=== PATIENT | female | born 1970 | race African-American/Black ===

== ENCOUNTER 2016-08-30 09:36 | Emergency (ER) | payer BC ==
[~2016-08-30 09:36] MED LIST: AMITIZA8 MCG PO; ATIVAN2 MG PO; BACLOFEN20 MG PO; BENTYL20 PO; BENZOYL PEROXIDE 10% T; CHLORASEPTIC1.4 % MT; COLACEUDL PO; DSS PO; DSS50 PO; ENULOSE PO; FERROUS SULF325 M1 PO; FORTICAL200 MG/ACT NAS; GAVISCON6 PO; GLYCAD PR; KAPIDEX60 MG PO; LIOR10 PO; MIRALAXPKT PO; MOVIPREP; NEXIUM40 PO; NIZORSHAM T; PAXIL40 MG PO; PROBIOTIC PO; PROTONIX20 MG PO; RECLAST IV; SENTAB PO; SEROQUEL1C PO; SEROQUEL200 MG PO; SEROQUEL50 MG PO; VITAMIN D1000 UNI1 PO; ZANTAC15 MG/ML PO; ZETIA PO; [UNRECOGNIZED DRUG - OTHER] PO; [UNRECOGNIZED DRUG - OTHER] T; [UNRECOGNIZED DRUG - OTHER] T
[2016-08-30 10:14] LABS: BASOPHILS 0.1 %; BASOPHILS ABSOLUTE 0.01 10/3/uL (0.0-0.16); EOSINOPHILS 0 %; ER CBC TAT 0 Hrs 08 Mins; HEMOGLOBIN 13.5 g/dL (12.0-16.0); IMMATURE GRANULOCYTES 0.3 %; IMMATURE GRANULOCYTES ABSOLUTE 0.04 10/3/uL (0.0-0.11); LYMPHOCYTES 19.3 %; LYMPHOCYTES ABSOLUTE 2.42 10/3/uL (0.67-4.30); MEAN CORPUS HGB CONC 33.1 g/dL (32.0-36.0); MEAN CORPUSCULAR HEMOGLOB 30.8 pg (26.0-34.0); MEAN CORPUSCULAR VOLUME 92.9 fL (80-100); MEAN PLATELET VOLUME 11.4 fL (9.2-13.0); MONOCYTES 4.6 %; MONOCYTES ABSOLUTE 0.58 10/3/uL (0.21-1.20); NEUTROPHILS 75.7 %; NEUTROPHILS ABSOLUTE 9.52 10/3/uL (2.02-8.40); PLATELET COUNT 197 10/3/uL (150-400); RBC DISTRIBUTION WIDTH 12.7 % (12.0-16.0); RED CELL COUNT 4.39 10/6/uL (4.0-5.6); WHITE BLOOD CELLS 12.6 10/3/uL (4.5-10.5)
[2016-08-30 10:17] LABS: HEMATOCRIT 40.8 % (36.0-48.0); MANUAL DIFF NO %
[2016-08-30 10:18] LABS: ASCORBIC ACID (UR NOT ORDER) NEG (NEG); BILIRUBIN, URINE NEGATIVE (NEG); ER URINALYSIS TAT 0 Hrs 12 Mins; KETONE, URINE NEGATIVE (NEG); LEUKOCYTE ESTERASE(NOT OR NEG (NEG); NITRITE (URINE) NEG (NEG); WBC (NOT ORDERED) (RFLEX) 1 (0-5)
[2016-08-30 10:21] LABS: INTERNATIONAL NORMAL RATI 1.1 UNITS (-); PARTIAL THROMBO TIME 29.3 SEC (22.5-37.2); PROTIME (NOT ORD) 13.9 SEC (12.0-14.5)
[2016-08-30 10:32] LABS: ALBUMIN 4.4 G/DL (3.5-5.0); ALKALINE PHOSPHATASE 113 U/L (45-117); BUN (BLOOD UREA NITROGEN) 10 MG/DL (6-23); CHEST PAIN PROFILE TAT 0 Hrs 26 Mins; CHLORIDE, SERUM 102 MMOL/L (96-112); CO2 (CARBON DIOXIDE) 30 MMOL/L (24-34); CREATININE 0.68 MG/DL (0.55-1.02); GFR AFRICAN AMERICAN 124 ML/MIN (>=60); GFR NON AFRICAN AMERICAN 107 ML/MIN (>=60); GLOBULIN 4.4 G/DL (2.5-4.1); GLUCOSE, SERUM 101 MG/DL (60-99); POTASSIUM, SERUM 4.1 MMOL/L (3.5-5.3); SGOT(AST) 14 U/L (5-40); SGPT(ALT) 18 U/L (5-65); SODIUM, SERUM 140 MMOL/L (135-148); TOTAL BILIRUBIN 0.3 MG/DL (0-1.2); TOTAL PROTEIN 8.8 G/DL (6.0-8.5); TROPONIN I <0.02 NG/ML (<0.05)
[2017-02-04] MEDS ORDERED: MIRALAX POWDER1 PKT PO (18:38)
[2017-02-04] MEDS ORDERED: PROTONIX20 MG PO (18:38)
[2017-02-04] MEDS ORDERED: LINZESS 145 M145 MCG PO (18:39)
[2017-02-04] MEDS ORDERED: BENTYL10 PO (18:39)
[2017-02-04] MEDS ORDERED: BACLOFEN20 MG PO (18:40)
[2017-02-04] MEDS ORDERED: BENZOYL PEROXIDE 10% TOP (18:40)
[2017-02-04] MEDS ORDERED: COLACEUDL PO (18:43)
[2017-02-04] MEDS ORDERED: FLONASE NAS (18:43)
[2017-02-04] MEDS ORDERED: [UNRECOGNIZED DRUG - OTHER] TOP (18:44)
[2017-02-04] MEDS ORDERED: ANASPAZ0.125 MG PO (18:44)
[2017-02-04] MEDS ORDERED: KETOCONAZOLE 2% TOP (18:45)
[2017-02-04] MEDS ORDERED: [UNRECOGNIZED DRUG - REMARK] TOP (18:47)
[2017-02-04] MEDS ORDERED: A + D OINTMENT113 GM TOP (18:48)
[2017-02-04] MEDS ORDERED: ZOL100 PO (18:48)
[2017-02-04] MEDS ORDERED: SEROQUEL1C PO (18:48)
[2017-02-04] MEDS ORDERED: KEPPRA500 PO (18:48)
[2017-02-04] MEDS ORDERED: CONSTULOSE PO (18:49)
[2017-02-04] MEDS ORDERED: FLEETS ENEMA PR (18:49)
[2017-02-04] MEDS ORDERED: [UNRECOGNIZED DRUG - OTHER] TOP (18:50)
== END 2016-08-30 13:42 | disposition home or self-care (01) ==
LOC: ER 09:36
PROVIDERS: Emergency Medicine
DX: K59.00 Constipation, unspecified (principal); J45.909 Unspecified asthma, uncomplicated; K21.9 Gastro-esophageal reflux disease without esophagitis; F32.9 Major depressive disorder, single episode, unspecified; Z88.2 Allergy status to sulfonamides; Z88.8 Allergy status to other drugs, medicaments and biological substances; Z79.899 Other long term (current) drug therapy
CPT/HCPCS: 74176; 80048; 80053; 81001; 83605; 83690; 83735; 84484; 85025; 85610; 85730; 96374; 99284; J2405

== ENCOUNTER 2017-01-19 18:10 | Emergency (ER) | payer BC | END 2017-01-19 18:44 | disposition home or self-care (01) | LOC: ER 18:10 | DX: Z03.6 Encounter for observation for suspected toxic effect from ingested substance ruled out (principal); K21.9 Gastro-esophageal reflux disease without esophagitis; J45.909 Unspecified asthma, uncomplicated; F32.9 Major depressive disorder, single episode, unspecified; Z90.49 Acquired absence of other specified parts of digestive tract; Z88.2 Allergy status to sulfonamides; Z88.8 Allergy status to other drugs, medicaments and biological substances; Z79.899 Other long term (current) drug therapy | CPT/HCPCS: 99283 ==